=== PATIENT | female | born 1950 | race Hispanic/Latino ===

== ENCOUNTER 2019-09-02 16:43 | Emergency (ER) | payer OTHER ==
--- OUTSIDE RECORDS SUMMARY | 2019-09-02 16:45 | XMS REPORT | Encounter Summary ---
:1950 Author Care Team Providers Name Role Phone Erick Sidhu MD Primary Care Provider [phone] Reason for Visit new patient Instructions 1. Persistent insomnia mirtazapine 15 mg tablet 2. Type 2 diabetes mellitus without complication 3. Essential hypertension 4. Dementia dementia: care instructions helping A person with dementia: care instructions Discussion Note: None recorded. Plan of Care Reminders Provider Appointments Follow up 06/17/2019 Erick Villalobos 2:15PM MD [facility] None recorded. Referral None recorded. Procedures None recorded. Surgeries None recorded. Imaging None recorded. Medications Name Start Date Bydureon 2 mg/0.65 mL subcutaneous pen injector 2mg sq q week diclofenac 1 % topical gel donepezil 10 mg tablet donepezil 5 mg tablet glipizide 5 mg tablet 1 tab po lisinopril 30 mg tablet 1 tab po qd memantine 10 mg tablet mirtazapine 15 mg tablet Take 1 tablet every day by oral route at bedtime for 30 days. Medications Administered None recorded. Vitals Height Weight BMI 59 in 135 lbs 27.3 kg/m2 Lab Results None recorded. Allergies Code Code System Name Reaction Severity Status Onset NKDA Problems Name Status Onset Date Source Diabetes Mellitus Active Encounter Hyperlipidemia Active Encounter Insomnia Active Encounter Essential Hypertension Active Encounter Shoulder Pain Active Encounter Biceps Tendinitis Active Encounter Muscle Pain Active Encounter Pain in Upper Limb Active Encounter Cramp in Lower Leg Associated with Rest Active Encounter Unexplained Weight Loss Active Encounter Urinary Symptoms Active Encounter Abdominal Pain Active Encounter Procedures Date Name Performed by 07/23/2006 Colonoscopy Information not available Cholecystectomy Information not available Hysterectomy Information not available Vaccine List None recorded. Social History Tobacco Smoking Status Never Smoker Past Encounters 04/17/2019 Persistent Insomnia; Type 2 Diabetes Mellitus without Complication; Essential Hypertension; Dementia Erick Sidhu MD: [address] [place] [address] [address], [place] [address], Ph. History of Present Illness Note: here for followup:<div>
</div><div>Patient brought in by daughter Aimee MONTES. Was seen by Dr Wilkins from [facility] and was dx with Stage 2 Dementia.Patient states she feels well , states she is under alot of stress. She still drives. She showers, bathes and dresses herself. She feeds herself and also is able to cook for herself. There are alot of legal issues going on, family apparently one daughter trying to get guardianship of the patient and there is an ongoing legal reyes between sisters.</div><div>Current living arrangement, daughter SIMON lives her at patient's house.</div><div>
</div><div> Current on MM 2017 per the patient.</div><div>
</div&gt ;<div>Current on Cologua2017 per the patient.</div><div>&lt ;br></div><div>S/p JORGE , no morepap smears.</div><div&gt ;
</div><div>Patient doesnt want flu shots.</div>< div>
</div><div>Unclear if she has had pneumonia vaccination.</div><div>
</div><div>She recieves Home health for medication monitoring through [facility]. </div><div& gt;
</div><div>
</div><div>PMHx:</ div><div>
</div><div>Type 2 DM</div><div& gt;
</div><div>HTN</div><div>
</div ><div>Dementia dx by Dr Wilkins pt refuses to take aricept and namenda. </div><div>
</div><div>
</ div><div>
</div> Review of Systems General Adult ROS Reported By: Patient Constitutional: Constitutional: no fever, no night sweats, no significant weight gain, no significant weight loss Eyes: Eyes: no dry eyes, no irritation ENMT: Ears: no difficulty hearing. Nose: no frequent nosebleeds. Mouth/Throat: no sore throat Cardiovascular: Cardiovascular: no chest pain, no arm pain on exertion, no shortness of breath when walking, no shortness of breath when lying down, no palpitations Respiratory: Respiratory: no cough, no wheezing, no shortness of breath, no coughing up blood Gastrointestinal: Gastrointestinal: no abdominal pain, no vomiting, normal appetite, no diarrhea, not vomiting blood Genitourinary: Genitourinary: no incontinence, no difficulty urinating, no hematuria Musculoskeletal: Musculoskeletal: no muscle aches, no muscle weakness, no arthralgias/joint pain, no back pain Integumentary: Skin: no abnormal mole, no jaundice, no rashes Neurologic: Neurologic: no loss of consciousness, no weakness, no numbness, no seizures, no dizziness Psychiatric: Psych: no depression, restless sleep Endocrine: Endocrine: no fatigue Hematologic/Lymphatic: Hematologic/Lymphatic no swollen glands, no bruising Allergic/Immunologic: Allergy/Immunologic: no runny nose, no sinus pressure, no itching, no hives, no frequent sneezing Physical Exam General Adult Exam - Female Reported By: Patient Constitutional: General Appearance: healthy-appearing, well-nourished, well-developed. Level of Distress: NAD. Ambulation: ambulating normally Psychiatric: Insight: good judgement. Mental Status: active and alert, normal mood, normal affect. Orientation: to time, to place, to person. Memory: recent memory normal Head: Head: normocephalic Eyes: Pupils: PERRLA. EOM: EOMI. Sclerae: non-icteric ENMT: Oropharynx: moist mucous membranes Neck: Neck: supple, FROM. Thyroid: no enlargement, non-tender, no nodules Lungs: Respiratory effort: no dyspnea. Auscultation: breath sounds normal, good air movement Cardiovascular: Heart Auscultation: RRR, normal S1, normal S2. Neck vessels: no carotid bruits. Pulses including femoral / pedal: normal throughout Abdomen: Bowel Sounds: normal. Inspection and Palpation: soft, non-distended, no tenderness, no guarding Musculoskeletal:: Motor Strength and Tone: normal motor strength, normal tone. Joints, Bones, and Muscles: normal movement of all extremities. Extremities: no cyanosis, no edema, no varicosities Neurologic: Gait and Station: normal gait, normal station. Cranial Nerves: grossly intact. Reflexes: DTRs 2+ bilaterally throughout Skin: Inspection and palpation: no rash, no lesions
--- OUTSIDE RECORDS SUMMARY | 2019-09-02 16:45 | XMS REPORT | Encounter Summary ---
:1950 Author Care Team Providers Name Role Phone Erick Sidhu MD Primary Care Provider [phone] Reason for Visit Abdominal Pain; new patient Instructions 1. Abdominal pain abdominal pain: care instructions CBC w/ auto diff CMP, serum or plasma urinalysis, complete amylase + lipase, serum 2. Elevated blood-pressure reading without diagnosis of hypertension elevated blood pressure: care instructions 3. Acute urinary tract infection Macrobid 100 mg capsule Discussion Note: None recorded. Plan of Care Patient Instructions Push fluids. Reminders Provider Appointments Follow up Erick Villalobos 06/17/2019 MD [facility] 2:15PM Lab CBC W/ Auto [facility] Diff 05/21/2019 [facility] (Labs) (Xray) CMP, Serum [facility] or Plasma 05/21/2019 [facility] (Labs) (Xray) Urinalysis, [facility] Complete 05/21/2019 [facility] (Labs) (Xray) Amylase + [facility] Lipase, Serum 05/21/2019 [facility] (Labs) (Xray) Referral None recorded. Procedures None recorded. Surgeries None recorded. Imaging None recorded. Medications Name Start Date Bydureon 2 mg/0.65 mL subcutaneous pen injector 2mg sq q week diclofenac 1 % topical gel donepezil 10 mg tablet donepezil 5 mg tablet glipizide 5 mg tablet 1 tab po lisinopril 30 mg tablet 1 tab po qd Macrobid 100 mg capsule Take 1 capsule every 12 hours by oral route for 7 days. memantine 10 mg tablet mirtazapine 15 mg tablet Take 1 tablet every day by oral route at bedtime for 30 days. Medications Administered None recorded. Vitals Height Weight BMI Blood Pressure 59 in 134 lbs 1 oz 27.1 kg/m2 164/84 mm[Hg] Results Lab Results None recorded. Allergies Code Code [...] Tobacco Smoking Status Never Smoker Past Encounters 05/21/2019 Abdominal Pain; Elevated Blood-pressure Reading without Diagnosis of Hypertension; Acute Urinary Tract Infection Gricel Bermudez, SEAMING MACHINE OPERATOR: [address], [place] [address] , Ph. History of Present Illness Note: Sharp stomach pain started this morning. Denies fever, nausea, vomiting , or diarrhea. Review of Systems General Adult ROS Reported [...] no coughing up blood Gastrointestinal: Gastrointestinal: no vomiting, normal appetite, no diarrhea, not vomiting blood, abdominal pain Genitourinary: Genitourinary: no incontinence, no difficulty urinating, no hematuria Musculoskeletal: Musculoskeletal: no muscle aches, no muscle weakness, no arthralgias/joint pain, no back pain Integumentary: Skin: no abnormal mole, no jaundice, no rashes Neurologic: Neurologic: no loss of consciousness, no weakness, no numbness, no seizures, no dizziness Psychiatric: Psych: no depression Endocrine: Endocrine: no fatigue Hematologic/Lymphatic: Hematologic/Lymphatic no swollen glands, no bruising Allergic/Immunologic: Allergy/Immunologic: no runny nose, no sinus pressure, no itching, no hives, no frequent sneezing Physical Exam General Adult Exam - Female Reported By: Patient Constitutional: General Appearance: healthy-appearing, well-nourished, well-developed. Level of Distress: NAD. Ambulation: ambulating normally Eyes: Lids and Conjunctivae: non-injected, no discharge, no pallor. Pupils: PERRLA. Corneas: grossly intact. EOM: EOMI. Lens: clear. Sclerae: non-icteric. Vision: peripheral vision grossly intact, acuity grossly intact ENMT: Ears: no lesions on external ear, TMs clear, TM mobility normal, EAC ceruminous. Hearing: no hearing loss. Nose: no lesions on external nose, nares patent, no septal deviation, nasal passages clear, no sinus tenderness, no nasal discharge. Lips, Teeth, and Gums: no mouth or lip ulcers, no bleeding gums, normal dentition. Oropharynx: moist mucous membranes, no erythema, no exudates, tonsils not enlarged Neck: Neck: supple, trachea midline, no masses, FROM, no carotid bruits. Lymph Nodes: no cervical LAD, no supraclavicular LAD, no axillary LAD, no inguinal LAD. Thyroid: no enlargement, non-tender, no nodules Lungs: Respiratory effort: no dyspnea. Percussion: no dullness, flatness, or hyperresonance. Auscultation: breath sounds normal, good air movement, CTA except as noted, no wheezing, no rales/crackles, no rhonchi Cardiovascular: Apical Impulse: not displaced. Heart Auscultation: RRR, normal S1, normal S2, no murmurs, no rubs, no gallops. Neck vessels: no carotid bruits. Pulses including femoral / pedal: normal throughout Abdomen: Inspection and Palpation: soft, non-distended, no rebound tenderness, epigastric tenderness, LUQ tenderness, RUQ tenderness, LLQ tenderness, RLQ tenderness
--- OUTSIDE RECORDS SUMMARY | 2019-09-02 16:45 | XMS REPORT | Continuity of Care Document ---
:1950 Author Organization [facility] Address [address] [place] [address] Allergies, Adverse Reactions, Alerts Allergen Type Severity Reaction Last Updated Verified Status No Known Allergies Allergy Unknown December 19, 2013 No Active Medications Medication Status Dose Units Route Sig Qty Days Start End Instructions Date Date Lisinopril Active 10 ORAL Daily Metformin Hcl Active 500 ORAL Twice A Day Problems Active Problems Medical Problem Onset Date Status Cervical radiculopathy Active Cervical radiculopathy Active Cervical radiculopathy Active [id number] Active [id number] Active [id number] Active Insect bite Active Laceration of thumb, left Active Shoulder pain Active UTI (urinary tract infection) with pyuria Active Inactive/Resolved Problems Medical Problem Onset Date Status Urinary tract infection Resolved Procedures Procedure Date Performed Status Computed tomography of abdomen and pelvis with contrast August 29, 2019 completed Relevant Diagnostic Tests and/or Laboratory Data Laboratory Results Test Date/Time Result Interpretation Reference Result Performing Range Comment Site White Blood Count August 6.1 4.0-11.5 [facility], [facility] 2019 9:54[facility] [address] Red Blood Count August 3.91 3.80-5.20 [facility], 2019 9:54[facility] 90990 Hemoglobin August 12.6 10.5-15.7 [facility], 2019 9:54[facility] [address]695 Hematocrit August 36.6 34.0-50.0 [facility], 2019 9:54[facility] [address] Mean Corpuscular August 93.6 86-100 [facility], Volume 2019 9:54[facility] [address] Mean Corpuscular August 32.2 26.2-33.4 [facility], [facility] 2019 9:54[facility] 14605 Mean Corpuscular August 34.4 30-34 [facility], [address] Hemoglobin Concent 2019 9:54[facility] [address] Red Cell February 11.8 12.0-15.5 [facility], [address] Distribution Width 2019 9:54[place] [address] Platelet Count August 188 165-450 [facility], [address] 2019 9:54[facility] [address] Mean Platelet August 9.3 9.4-12.6 [facility], [address] Volume 2019 9:54[facility] [place] [address] Neutrophils (%) August 53.6 44.4-80.1 [facility], [address] (Auto) 2019 9:54[facility] [address] Immature February 0.2 0.0-0.4 [facility], [address] Granulocyte % 2019 (Auto) 9:54[facility] [address] Lymphocytes (%) August 39.0 10.0-50.0 [facility], [address] (Auto) 2019 9:54am [place] [address] Monocytes (%) August 6.2 3.6-12.0 [facility], [address] (Auto) 2019 9:54am [place] [address] Eosinophils (%) August 0.7 0.0-5.4 [facility], [address] (Auto) 2019 9:54am [place] [address] Basophils (%) August 0.3 0.1-1.2 [facility], [address] (Auto) 2019 9:54[facility] [address] Neutrophils # February 3.27 1.56-6.13 [facility], [address] (Auto) 2019 9:54[facility] [address] Absolute Immature February 0.0 0.0-0.03 [facility], [address] Granulocyte (auto 2019 9:54[facility] [place] [address] Lymphocytes # February 2.4 1.18-3.74 [facility], [address] (Auto) 2019 9:54am [place] [address] Monocytes # (Auto) August 0.38 0.24-0.86 [facility], [address] 2019 9:54am [place] [address] Eosinophils # February 0.04 0.04-0.36 [facility], [address] (Auto) 2019 9:54am [place] [address] Basophils # (Auto) August 0.02 0.01-0.08 [facility], 2019 9:54am [place] [address] Nucleated Red August 0 0-0.2 [facility], [facility] Blood Cells % 2019 9:54am [place] [address] Nucleated Red August 0 0 [facility], Blood Cells # 2019 9:54am [place] [address] Urine Color August COLORLESS [facility], 104 2019 10:20am [place] [address] Urine Appearance August CLEAR CLEAR [facility], 104 2019 10:20am [place] [address] Urine Glucose (UA) August NEGATIVE NEGATIVE [facility], 104 2019 10:20am [place] [address] Urine Bilirubin August NEGATIVE NEGATIVE [facility], 104 2019 10:20am [facility] [address] Urine Ketones August NEGATIVE NEGATIVE [facility], 104 2019 10:20am [facility] [address] Urine Specific August 1.010 1.003-1.03 [facility], [address] [place] 2019 0 10:20am [facility] [address] Urine Blood August NEGATIVE NEGATIVE [facility], 104 2019 10:20am [facility] [address] Urine pH August 6.000 5-9 [facility], 2019 10:20am [facility] [address] Urine Protein August NEGATIVE NEGATIVE [facility], 2019 10:20am [facility] [address] Urine Urobilinogen August NORMAL 0.2-1.0 [facility], 104 2019 10:20am [place] [address] Urine Nitrate August NEGATIVE NEGATIVE [facility], 104 2019 10:20am [facility] [address] Urine Leukocyte August 1+ NEGATIVE [facility], 104 [place] 2019 10:20am [facility] [address] Urine RBC August <1 0-5 [facility], 2019 10:20am [place] [address] Urine WBC August 1-5 0-5 [facility], 2019 10:20am [place] [address] Urine Epithelial August 1-5 0-5 [facility], 104 2019 10:20am [facility] [address] Urine Bacteria August None None [facility], [address] [place] [address] 2019 Detected Detect 10:20am [facility] [address] Urine Casts August None None [facility], [address] [place] [address] 2019 Detected Detect 10:20am [facility] [address] Urine Culture August YES [facility], [address] [place] [address] Reflexed 2019 10:20am [facility] [address] Random Glucose August 208 82-115 [facility], [address] [place] [address] 2019 10:15am [facility] [address] Blood Urea August 13 8-23 [facility], [address] [place] [address] Nitrogen 2019 10:15am [facility] [address] Serum Osmolality August 280 280-300 [facility], [address] [place] [address] 2019 10:15am [facility] [address] Creatinine August 0.8 0.50-0.90 [facility], [address] [place] [address] 2019 10:15am [facility] [address] Glomerular August > 60.00 GFR RESULTS [address] Filtration Rate 2019 ARE Calc 10:15am REPORTED IN [facility] [address] mL/min/1.73 m2.Normal GFR: >60mL/minMo derately decreased GFR: 30-59 mL/minSever stella decreased GFR: 15-29 mL/minKidne y Failure (or Dialysis): <15 mL/minThe calculated eGFR is not valid for patients younger than 18 years or older than 75 years. BUN/Creatinine August 16.3 12-20 [facility], [address] [facility] Ratio 2019 10:15am [facility] [address] Sodium Level August 137 135-145 [facility], [address] [place] [address] 2019 10:15am [facility] [address] Potassium Level August 3.6 3.5-5.2 [facility], [address] [place] [address] 2019 10:15am [facility] [address] Chloride Level August 100 98-108 [facility], [address] [place] [address] 2019 10:15am [facility] [address] Carbon Dioxide August 25 21-32 [facility], [address] [place] [address] Level 2019 10:15am [facility] [address] Anion Gap August 15.6 12-20 [facility], [address] [place] [address] 2019 10:15am [facility] [address] Calcium Level August 8.8 8.8-10.2 [facility], [address] [place] [address] 2019 10:15am [facility] [address] Total Protein February 6.9 6.6-8.7 [facility], 104 2019 10:15am [facility] [address] Albumin February 3.9 3.5-5.2 [facility], 104 2019 10:15am [facility] [address] Globulin February 3.0 [facility], 104 2019 10:15am [facility] [address] Albumin/Globulin February 1.3 >1.0 [facility], [address] Ratio 2019 10:15am [facility] [address] Total Bilirubin February 0.4 0.0-1.2 [facility], 104 2019 10:15am [facility] [address] Aspartate Amino August 27 15-32 [facility], [address] Transf (AST/SGOT) 2019 10:15am [facility] [address] Alanine August 30 0-33 [facility], [address] Aminotransferase 2019 (ALT/SGPT) 10:15[facility] [address] Lipase August 36 13-60 [facility], [address] 2019 10:15am [facility] [address] Total Alkaline August 155 35-105 [facility], [address] Phosphatase 2019 10:15am [facility] [address] Health Concerns No known health concerns documented Advance Directives Advance Directive Response Recorded Date/Time Advance Directives No September 25, 2015 4:56am Directive to Physicians/Living Will No September 25, 2015 4:56am Health Care Proxy No September 25, 2015 4:56am Name of Surrogate/Decision Maker KELSIE GILLETTE August 29, 2019 11:00am Organ Donor No September 25, 2015 4:56am Medical Power of Hoisting Engineer Pile Driving No September 25, 2015 4:56am Chief Complaint and Reason for Visit Chief Complaint Abdominal/GI/Nausea/Vomiting Reason for Visit [id number] Encounters Encounter Location(s) Arrival/Admit Date Discharge/Depart Date Provider(s) Departed [place] August 29, 2019 August 29, 2019 JOHN HADDAD Emergency Room [facility] 9:42am 2:11pm [facility] Assessments No Assessments Information Available Functional Status No Functional Status information available Goals No Goals Information Available Immunizations No Immunization Information Available Mental Status No Mental Status Information Available Medical Equipment No Medical Equipment Information available Insurance Providers Guarantor Peg Turpin Address [address] [facility] [id number] Contact Info. Home Phone: Payer Policy Id Coverage Id Subscriber's Subscriber Id Effective Expiration Name Date Date [place] [id number] Peg Turpin [id number] August [facility] Plan of Treatment 1. Thank you for coming to the emergency department today. It is a privilege to serve you and your family. 2. Please call your primary care doctor today to make a follow-up appointment. 3. Emergency room care is not a substitute for primary care. It is impossible to diagnose and treat all medical conditions in the emergency department or in a single visit. It is very important that you follow up as directed. 4. Please return to the Emergency room for any worsening or severe or worrisome symptoms. 5. Please fill your prescriptions immediately and take all prescriptions as directed. Future Tests Future scheduled test information is unavailable Pending Tests Test Name Date ordered Urine Culture August 29, 2019 10:20am Future Visits Future appointment information is unavailable Referrals to Other Providers Reason for Referral Start Provider Provider Contact Provider Address Referral Date Information TYLER BROWN Work Phone: [address] [facility] [address] Future Procedures Future procedure information is unavailable Future Medications Future medication information is unavailable Patient Instructions Urinary Tract Infection, Adult Social History Smoking Status Status Date of Observation Never smoked tobacco (finding) August 29, 2019 9:45am Observation Status Observation Response Date of Response Hx Physical Abuse No August 29, 2019 9:45am Assigned Sex Female Vital Signs Vital Reading Result Collection Date/Time
--- OUTSIDE RECORDS SUMMARY | 2019-09-02 16:45 | XMS REPORT | Encounter Summary ---
:1950 Author Care Team Providers Name Role Phone Erick Sidhu MD Primary Care Provider [phone] Reason for Visit Follow Up Visit Instructions 1. Type 2 diabetes mellitus without complication hemoglobin A1c, QN, blood CMP, serum or plasma lipid panel, serum microalbumin, urine TSH, serum or plasma 2. Persistent insomnia Remeron 30 mg tablet 3. Urinary tract infectious disease 4. Essential hypertension Discussion Note: None recorded.Patient educational handouts: No information available. Plan of Care Reminders Provider Appointments Return to on or around Erick Villalobos Office 09/17/2019 MD [facility] Hemoglobin 06/17/2019 [facility] a1C, QN, Blood [facility] (Labs) (Xray) CMP, Serum 06/17/2019 [facility] or Plasma [facility] (Labs) (Xray) Lipid Panel, 06/17/2019 [facility] Serum [facility] (Labs) (Xray) 06/17/2019 [facility] Microalbumin, Urine [facility] (Labs) (Xray) TSH, Serum 06/17/2019 [facility] or [facility] (Labs) (Xray) Referral None recorded. Procedures None recorded. Surgeries None recorded. Imaging None recorded. Medications Name Start Date acetaminophen 300 mg-codeine 30 mg tablet Bydureon 2 mg/0.65 mL subcutaneous pen injector 2mg sq q week diclofenac 1 % topical gel donepezil 10 mg tablet donepezil 5 mg tablet glipizide 5 mg tablet 1 tab po lisinopril 30 mg tablet 1 tab po qd memantine 10 mg tablet mirtazapine 15 mg tablet Take 1 tablet every day by oral route at bedtime for 30 days. vserybin-xngdsawpx-cnohksgoq 3.5 mg-10,000 unit/mL-1 % ear drops,susp OneTouch Ultra Blue Test Strip Remeron 30 mg tablet Take 1 tablet every day by oral route for 30 days. Medications Administered None recorded. Vitals Height Weight BMI Blood Pressure 59 in 133 lbs 7 oz 27 kg/m2 129/76 mm[Hg] Results Lab Results Date Name Specimen Result Interpretation Description Value Range Status Address 05/21/2019 CBC W/ Normal White 6.7 K/uL 4.0-11.5 Final [facility] Auto Diff Blood Count K/uL [facility] (Lab): [address] [place] [address] Normal Red Blood 3.91 M/uL 3.80-5.20 Final [facility] Count M/uL [facility] (Lab): [address] [place] [address] Normal Hemoglobin 12.6 g/dL 10.5-15.7 Final [facility] g/dL [facility] (Lab): [address] [place] [address] Normal Hematocrit 38.0 % 34.0-50.0 Final [facility] % [facility] (Lab): [address] [place] [address] Normal Mean 97.2 fL 86-100 fL Final [facility] Corpuscular [facility] Volume [facility] (Lab): [address] [place] [address] Normal Mean 32.2 pg 26.2-33.4 Final [facility] Corpuscular pg [facility] Hemoglobin [facility] (Lab): [address] [place] [address] Normal Mean 33.2 g/dL 30-34 Final [facility] Corpuscular g/dL [facility] (Lab): [address] [place] [address] Normal Red Cell 12.2 % 12.0-15.5 Final [facility] Distribut[facility] (Lab): [address] [place] [address] Normal Platelet 256 K/uL 165-450 Final [facility] Count K/uL [facility] (Lab): [address] [place] [address] Normal Mean 9.9 fL 9.4-12.6 Final [facility] Platelet fL [facility] (Lab): [address] [place] [address] Normal Neutrophil 59.1 % 44.4-80.1 Corrected [facility] s % % [facility] (Lab): [address] [place] [address] Normal Ig% 0.4 % 0.0-0.4 % Corrected [facility] (Lab): [address] [place] [address] Normal Lymphocyte 33.7 % 10.0-50.0 Final [facility] % % [facility] (Lab): [address] [place] [address] Normal Coal % 5.8 % 3.6-12.0 Final [facility] % [facility] (Lab): [address] [place] [address] Normal Eos % 0.9 % 0.0-5.4 % Final [facility] (Lab): [address] [place] [address] Normal Basophil % 0.1 % 0.1-1.2 % Final [facility] (Lab): [address] [place] [address] Normal Absolute 3.96 K/uL 1.56-6.13 Final [facility] Neutrophil K/uL [facility] Count [facility] (Lab): [address] [place] [address] Normal Ig# 0.0 K/uL 0.0-0.03 Corrected [facility] K/uL [facility] (Lab): [address] [place] [address] Normal Lymph # 2.3 K/uL 1.18-3.74 Corrected [facility] K/uL [facility] (Lab): [address] [place] [address] Normal Coal # 0.39 K/uL 0.24-0.86 Final [facility] K/uL [facility] (Lab): [address] [place] [address] Normal Eos # 0.06 K/uL 0.04-0.36 Final [facility] K/uL [facility] (Lab): [address] [place] [address] Normal Basophil # 0.01 K/uL 0.01-0.08 Corrected [facility] K/uL [facility] (Lab): [address] [place] [address] Normal Nrbc% 0 /100 0-0.2 Final [facility] WBC /100 WBC [facility] (Lab): [address] [place] [address] Normal Nrbc# 0 K/uL 0 K/uL Final [facility] (Lab): [address] [place] [address] 05/21/2019 Differenti Normal Neutrophil Incomplete [facility] al Panel, s [facility] Blood [facility] (Lab): [address] [place] [address] Normal Band Incomplete [facility] (Lab): [address] [place] [address] Normal Lymphocyte Incomplete [facility] (Lab): [address] [place] [address] Normal Monocyte Incomplete [facility] (Lab): [address] [place] [address] Normal Eosinophil Incomplete [facility] (Lab): [address] [place] [address] Normal Metamyeloc Incomplete [facility] yte [facility] (Lab): [address] [place] [address] Normal Myelocyte Incomplete [facility] (Lab): [address] [place] [address] Normal Nucleated Incomplete [facility] Red Blood [facility] Cell [facility] (Lab): [address] [place] [address] Normal Platelet Incomplete [facility] Estimate [facility] (Lab): [address] [place] [address] Normal Platelet Incomplete [facility] Morphology [facility] (Lab): [address] [place] [address] Normal Polychroma Incomplete [facility] chepe [facility] (Lab): [address] [place] [address] 05/21/2019 Urinalysis Normal Color, yellow Final [facility] Complete, Urine [facility] Reflex [facility] (Lab): [address] [place] [address] ABNORMAL Appearance SL cloudy clear Final [facility] , Urine [facility] (Lab): [address] [place] [address] Normal Urine negative negative Final [facility] Glucose [facility] (Lab): [address] [place] [address] Normal Bilirubin, negative negative Final [facility] Urine [facility] (Lab): [address] [place] [address] Normal Ketone, negative negative Final [facility] Urine [facility] (Lab): [address] [place] [address] Normal Specific 1.020 1.003-1.0 Final [facility] Hurley,uri 30 [facility] (Lab): [address] [place] [address] Normal Blood negative negative Final [facility] Urine [facility] (Lab): [address] [place] [address] Normal pH,urine 5.500 5-9 Final [facility] (Lab): [address] [place] [address] High Protein =1+ (30 negative Final [facility] Urine (UA) [facility] (Lab): [address] [place] [address] Normal Urobilinog normal 0.2-1.0 Final [facility] en, Urine mg/dL mg/dL [facility] (Lab): [address] [place] [address] Normal Nitrate, negative negative Final [facility] Urine [facility] (Lab): [address] [place] [address] Urine =4 negative Final [facility] Leukocyte [facility] Esterase [facility] (Lab): [address] [place] [address] Normal RBC, Urine <1 /[hpf] 0-5 Final [facility] /[hpf] [facility] (Lab): [address] [place] [address] High WBC, Urine =30-49 0-5 Final [facility] /[hpf] /[hpf] [facility] (Lab): [address] [place] [address] Normal Epithelial =6-10 0-5 Final [facility] Cell /[hpf] /[hpf] [facility] (Lab): [address] [place] [address] High Bacteria, tntc (4 none Final [facility] Urine /[hpf] detect Regional /[hpf] [facility] (Lab): [address] [place] [address] Normal Casts,urin hyaline none Final [facility] e 0-5 /lpf detect [facility] (Lab): [address] [place] [address] Normal Urine yes Final [facility] Culture [facility] (Lab): [address] [place] [address] Normal Mucus, =1 /lpf none Final [facility] Urine detect Regional /lpf [facility] [place] (Lab): [address] [place] [address] 05/21/2019 CMP, Serum High Glucose 179 mg/dL 82-115 Final [facility] or Plasma mg/dL [facility] (Lab): [address] [place] [address] Normal Blood Urea 12 mg/dL 8-23 Final [facility] Nitrogen mg/dL [facility] (Lab): [address] [place] [address] Normal Osmolality 293 280-300 Final [facility] Calculated, mOsm/kg mOsm/kg [facility] (Lab): [address] [place] [address] Normal Creatinine 0.8 mg/dL 0.50-0.90 Final [facility] mg/dL [facility] (Lab): [address] [place] [address] Normal Glomerular >60.00 Final [facility] Filtration [facility] [place] (Lab): [address] [place] [address] Normal BUN/creati 15.0 12-20 Final [facility] nine Ratio [facility] (Lab): [address] [place] [address] Normal Sodium 145 135-145 Final [facility] Level mmol/L mmol/L [facility] (Lab): [address] [place] [address] Normal Potassium 4.0 3.5-5.2 Final [facility] Level mmol/L mmol/L [facility] (Lab): [address] [place] [address] Normal Chloride 107 98-108 Final [facility] Level mmol/L mmol/L [facility] (Lab): [address] [place] [address] Normal Co2 28 mmol/L 21-32 Final [facility] mmol/L [facility] (Lab): [address] [place] [address] Normal Anion Gap 14.0 12-20 Final [facility] mEq/L mEq/L [facility] (Lab): [address] [place] [address] Normal Calcium 9.7 mg/dL 8.8-10.2 Final [facility] Level mg/dL [facility] (Lab): [address] [place] [address] Normal Total 7.4 g/dL 6.6-8.7 Final [facility] Protein g/dL [facility] (Lab): [address] [place] [address] Normal Albumin 4.2 g/dL 3.5-5.2 Final [facility] g/dL [facility] (Lab): [address] [place] [address] Normal Globulin 3.2 gm/dL Final [facility] (Lab): [address] [place] [address] Normal A/g Ratio 1.3 >1.0 Final [facility] (Lab): [address] [place] [address] Normal Bilirubin, <0.3 0.0-1.2 Final [facility] total mg/dL mg/dL [facility] (Lab): [address] [place] [address] Normal AST/SGOT 27 U/L 15-32 U/L Final [facility] (Lab): [address] [place] [address] Normal ALT/SGPT 25 U/L 0-33 U/L Final [facility] (Lab): [address] [place] [address] High Alkaline 147 U/L 35-105 Final [facility] Phosphatase U/L [facility] Total [facility] (Lab): [address] [place] [address] 05/21/2019 Amylase, Normal Amylase 100 U/L 28-100 Final [facility] Serum or Level U/L [facility] Plasma [facility] (Lab): [address] [place] [address] 05/21/2019 Culture, Bacteria Final [facility] Urine Ur Cult [facility] (Lab): [address] [place] [address] 05/21/2019 Antibiotic Susceptible Gentamicin <4 ug/mL Not [facility] Sensitivit Islt J Carlos Reported [facility] y Testing, [facility] (Lab): [address] [place] [address] Resistant Ampicillin >16 ug/mL Not [facility] Islt J Carlos Reported [facility] (Lab): [address] [place] [address] Susceptible Cefazolin <8 ug/mL Not [facility] Islt J [facility]orted [facility] ([facility]): [address] [place] [address] Susceptible Tmp Smx =2/38 Not [facility] Islt J Carlos ug/mL Reported [facility] (Lab): [address] [place] [address] Susceptible Tetracycli <4 ug/mL Not [facility] ne Islt J [facility] Reported [facility] (Lab): [address] [place] [address] Susceptible Amoxicilli =8/4 Not [facility] n+clav Islt ug/mL Reported [facility] (Lab): [address] [place] [address] Susceptible Tobramycin <4 ug/mL Not [facility] Islt J [facility] Reported [facility] (Lab): [address] [place] [address] Intermediate Nitrofuran 64 ug/mL Not [facility] toin Islt Reported [facility] (Lab): [address] [place] [address] Susceptible Cefotaxime <2 ug/mL Not [facility] Islt J [facility] Reported [facility] (Lab): [address] [place] [address] Susceptible Cefepime <8 ug/mL Not [facility] Islt J Carlos Reported [facility] (Lab): [address] [place] [address] Susceptible Levofloxac <2 ug/mL Not [facility] in Islt J Carlos Reported [facility] (Lab): [address] [place] [address] Susceptible Pip+tazo <16 ug/mL Not [facility] Islt J Carlos Reported [facility] (Lab): [address] [place] [address] Susceptible Ceftazidim <1 ug/mL Not [facility] e Islt J [facility] Reported [facility] ([facility]): [address] [place] [address] Susceptible Ceftriaxon <8 ug/mL Not [facility] e Islt J [facility] Reported [facility] (Lab): [address] [place] [address] Susceptible Ciprofloxa <1 ug/mL Not [facility] loyda Islt Reported [facility] (Lab): [address] [place] [address] Susceptible Imipenem <4 ug/mL Not [facility] Islt J Carlos Reported [facility] (Lab): [address] [place] [address] Susceptible Ampicillin =8/4 Not [facility] +sulbac ug/mL Reported [facility] Is [facility] (Lab): [address] [place] [address] Susceptible Ertapenem <2 ug/mL Not [facility] Islt J Carlos Reported [facility] (Lab): [address] [facility] Susceptible Aztreonam <8 ug/mL Not [facility] Islt J Carlos Reported [facility] (Lab): [address] [facility] Susceptible Cefuroxime <4 ug/mL Not [facility] Islt J Carlos Reported [facility] (Lab): [address] [facility] Susceptible Meropenem <4 ug/mL Not [facility] Islt J Carlos Reported [facility] (Lab): [address] [place] [address] Allergies Code Code System Name Reaction Severity [...] Tobacco Smoking Status Never Smoker Past Encounters 06/17/2019 Type 2 Diabetes Mellitus without Complication; Persistent Insomnia; Urinary Tract Infectious Disease; Essential Hypertension Erick Sidhu MD: [address], [place] [address], Ph. 05/21/2019 Abdominal Pain; Elevated Blood-pressure Reading without Diagnosis of Hypertension; Acute Urinary Tract Infection Gricel Bermudez HEARING THERAPY DIRECTOR: [address], [place] [address] , Ph. History of Present Illness Note: <div>Type 2 diabetes mellitus: Patient denies polyuria or polydipsia or polyphagia. No abnormal weight loss. Taking medications every day. States he does get an eye exam once a year. Denies any problems with her feet.</div><div>
</div><div>Hypertension: Taking medication as prescribed. Denies any edema paroxysmal nocturnal dyspnea or orthopnea.</div><div>
</div><div>Insomnia: Patient taken Remeron 15 mg at at bedtime only felt some minimal improvement.&lt ;/div><div>
</div><div>UTI: Patientdiagnosed with a UTI by her nurse practitioner she denies any symptoms at this time due for a recheck on her urinary analysis.</div><div>
</div>&lt ;div>Dementia: Patient not taking any medications prescribed by her neurologist. States that she has been feeling better. No recent falls.</div ><div>
</div><div>
</div><div&gt ;
</div> Review of Systems General Adult ROS [...]
[2019-09-02 17:43] LABS: Absolute Lymphocytes (CBC) 1.1 K/uL (0.7-4.9); Basophils % 0.5 % (0-1.3); Hematocrit 37.3 % (36.0-45.0); Lymphocytes % 25.7 % (15.3-44.8); MPV 7.7 fL (7.6-11.3); RBC Red Blood Cell Count 3.93 M/uL (3.86-4.86)
[2019-09-02] MEDS ORDERED: NA CHLORIDE 0.9% 1,000 ML ONE (18:00)
--- NOTE | 2019-09-02 18:07 | RAD REPORT ---
EXAM DESCRIPTION: CT - Stone Protocol - 09/02/2019 5:47 pm CLINICAL HISTORY: Abdominal pain COMPARISON: None TECHNIQUE: Computed axial tomography of the abdomen and pelvis was obtained. IV was not requested. O ral contrast was given. Coronal reconstructions performed. All CT scans are performed using dose optimization technique as appropriate and may include automated exposure control or mA/KV adjustment according to patient size. FINDINGS: The evaluation of solid organs and vessels is limited secondary to the lack of contrast a dministration. A prominent left lobe and caudate of the liver. Varices left upper quadrant Spleen, pancreas, adrenals and left kidney appear grossly normal. Two tiny right renal calculi. No hydronephrosis. A ureteral calculus is not noted The appendix is normal. There is no evidence of diverticulitis. Small umbilical hernia contains fat IMPRESSION: Tiny nonobstructing right renal calculi Prominent left lobe and caudate liver may indicate cirrhosis. Varices left upper quadrant
[2019-09-02 18:11] LABS: Albumin 3.6 g/dL (3.4-5.0); Bilirubin Direct 0.1 mg/dL (0-0.2); Bilirubin Total 0.4 mg/dL (0.2-1.0); Protein, Total 7.2 g/dL (6.4-8.2)
[2019-09-02 18:33] LABS: Urine Blood TRACE (NEG); Urine Glucose 1+ (NEG); Urine Protein 1+ (NEG); Urine Specific Gravity 1.015 (1.005-1.030)
[2019-09-02] MEDS ORDERED: ONDANSETRON 4 MG/2 ML VIAL ONE (18:34)
[2019-09-02] MEDS ORDERED: MORPHINE 4 MG/ML SYR ONE (18:34)
--- NOTE | 2019-09-02 18:34 | RAD REPORT ---
EXAM DESCRIPTION: [facility] Single View09/02/2019 6:19 pm CLINICAL HISTORY: Abdominal pain COMPARISON: none FINDINGS: The lungs appear clear of acute infiltrate. The heart is normal size IMPRESSION: No acute abnormalities displayed
--- NOTE | 2019-09-02 19:01 | EDPHYS ---
Physician Documentation [facility] Name: Peg Bragg Age: 69 yrs Sex: Female : 1950 Arrival Date: 09/02/2019 Time: 16:44 Bed 24 Private MD: ED Physician Nicola Marroquin HPI: 09/02 17:48 This 69 yrs old Female presents to ER via Wheelchair with complaints of Back giles Pain, Abdominal Pain, Urinary Problem. 17:48 The patient presents with pain that is acute, with no known mechanism of injury. The giles symptoms are located in the left low back and left mid back. Historical: - Allergies: 17:00 No Known Allergies; jl7 - Home Meds: 17:00 mirtazapine 30 mg Oral tab 1 tab once daily [Active]; donepezil 10 mg oral tab 1 tab jl7 once daily [Active]; glipizide 5 mg Oral tab 1 tab 2 times per day [Active]; memantine 10 mg oral tab 1 tab 2 times per day [Active]; lisinopril 10 mg Oral tab 1 tab once daily [Active]; Trulicity subcutaneous subcutaneous [Active]; - PMHx: 17:00 Diabetes - IDDM; Hypertension; Dementia; jl7 - PSHx: 17:00 Hysterectomy; Cholecystectomy; Appendectomy; jl7 - Immunization history:: Adult Immunizations not up to date. - Coronavirus screen:: The patient has NOT traveled to [place] in the past 14 days. Proceed with normal triage process as indicated. - Social history:: Smoking status: Patient denies any tobacco usage or history of. - Family history:: not pertinent. - Ebola Screening: : No symptoms or risks identified at this time. ROS: 17:49 Constitutional: Negative for fever, chills, and weight loss, Eyes: Negative for injury, giles pain, redness, and discharge, ENT: Negative for injury, pain, and discharge, Neck: Negative for injury, pain, and swelling, Cardiovascular: Negative for chest pain, palpitations, and edema, Respiratory: Negative for shortness of breath, cough, wheezing, and pleuritic chest pain, : Negative for injury, bleeding, discharge, and swelling, MS/Extremity: Negative for injury and deformity, Skin: Negative for injury, rash, and discoloration, Neuro: Negative for headache, weakness, numbness, tingling, and seizure, Psych: Negative for depression, anxiety, suicide ideation, homicidal ideation, and hallucinations, Allergy/Immunology: Negative for hives, rash, and allergies, Endocrine: Negative for neck swelling, polydipsia, polyuria, polyphagia, and marked weight changes, Hematologic/Lymphatic: Negative for swollen nodes, abnormal bleeding, and unusual bruising. 17:49 Abdomen/GI: Positive for abdominal pain. 17:49 Back: Positive for pain at rest, flank pain. Exam: 17:49 Constitutional: This is a well developed, well nourished patient who is awake, alert, giles and in no acute distress. Head/Face: Normocephalic, atraumatic. Eyes: Pupils equal round and reactive to light, extra-ocular motions intact. Lids and lashes normal. Conjunctiva and sclera are non-icteric and not injected. Cornea within normal limits. Periorbital areas with no swelling, redness, or edema. ENT: Nares patent. No nasal discharge, no septal abnormalities noted. Tympanic membranes are normal and external auditory canals are clear. Oropharynx with no redness, swelling, or masses, exudates, or evidence of obstruction, uvula midline. Mucous membranes moist. Neck: Trachea midline, no thyromegaly or masses palpated, and no cervical lymphadenopathy. Supple, full range of motion without nuchal rigidity, or vertebral point tenderness. No Meningismus. Chest/axilla: Normal chest wall appearance and motion. Nontender with no deformity. No lesions are appreciated. Cardiovascular: Regular rate and rhythm with a normal S1 and S2. No gallops, murmurs, or rubs. Normal PMI, no JVD. No pulse deficits. Respiratory: Lungs have equal breath sounds bilaterally, clear to auscultation and percussion. No rales, rhonchi or wheezes noted. No increased work of breathing, no retractions or nasal flaring. Abdomen/GI: Soft, non-tender, with normal bowel sounds. No distension or tympany. No guarding or rebound. No evidence of tenderness throughout. Back: No spinal tenderness. No costovertebral tenderness. Full range of motion. Skin: Warm, dry with normal turgor. Normal color with no rashes, no lesions, and no evidence of cellulitis. MS/ Extremity: Pulses equal, no cyanosis. Neurovascular intact. Full, normal range of motion. Neuro: Awake and alert, GCS 15, oriented to person, place, time, and situation. Cranial nerves II-XII grossly intact. Motor strength 5/5 in all extremities. Sensory grossly intact. Cerebellar exam normal. Normal gait. Psych: Awake, alert, with orientation to person, place and time. Behavior, mood, and affect are within normal limits. 17:49 Abdomen/GI: Inspection: abdomen appears normal, Bowel sounds: normal, Palpation: [facility] moderate abdominal tenderness, in the posterior aspect of left lateral abdomen, anterior aspect of left lateral abdomen, left upper quadrant and left lower quadrant. 18:54 Skin: zoster. [facility] Vital Signs: 17:00 BP 160 / 78; Pulse 85; Resp 17 S; Temp 98.5(O); Pulse Ox 95% on R/A; Weight 60.33 kg jl7 (R); Height 4 ft. 9 in. (144.78 cm) (R); Pain 10/10; 19:32 BP 128 / 78; Pulse 80; Resp 17; Temp 98; Pulse Ox 100% on R/A; mg2 17:00 Body Mass Index 28.78 (60.33 kg, 144.78 cm) jl7 MDM: 17:15 Patient medically screened. [facility] 17:52 Data reviewed: vital signs, nurses notes, lab test result(s), radiologic studies, CT [facility] scan, plain films. 09/02 17:30 Order name: Basic Metabolic Panel [facility] 09/02 17:30 Order name: CBC with Diff [facility] 09/02 17:30 Order name: Creatinine for Radiology [facility] 09/02 17:30 Order name: Hepatic Function [facility] 09/02 17:30 Order name: Lipase [facility] 09/02 17:45 Order name: CBC with Automated Diff; Complete Time: 18:42 [facility] 09/02 17:30 Order name: CT Stone Protocol [facility] 09/02 17:48 Order name: Urine Culture [facility] 09/02 18:08 Order name: Creatinine (Radiology Only); Complete Time: 18:42 [facility] 09/02 18:13 Order name: Basic Metabolic Panel; Complete Time: 18:42 [facility] 09/02 18:13 Order name: Liver (Hepatic) Function; Complete Time: 18:42 [facility] 09/02 18:13 Order name: Lipase; Complete Time: 18:42 [facility] 09/02 18:16 Order name: Urine Dipstick--Ancillary (enter results) 09/02 18:35 Order name: Urine Dipstick-Ancillary; Complete Time: 18:42 [facility] 09/02 17:30 Order name: IV Saline Lock; Complete Time: 17:38 [facility] 09/02 17:30 Order name: Labs collected and sent; Complete Time: 17:38 [facility] 09/02 17:30 Order name: Urine Dipstick-Ancillary (obtain specimen); Complete Time: 17:38 [facility] 09/02 17:48 Order name: Chest Single View XRAY [facility] 09/02 18:16 Order name: CT; Complete Time: 18:42 [facility] 09/02 18:42 Order name: RAD; Complete Time: 18:54 EDMS Administered Medications: 17:53 Drug: NS 0.9% 1000 ml Route: IV; Rate: 1 bolus; Site: right forearm; mg2 19:32 Follow up: Response: No adverse reaction; IV Status: Completed infusion; IV Intake: mg2 1000ml 18:45 Drug: morphine 4 mg Route: IVP; Site: right forearm; mg2 19:31 Follow up: Response: No adverse reaction; Marked relief of symptoms mg2 18:45 Drug: Zofran 4 mg Route: IVP; Site: right forearm; mg2 19:31 Follow up: Response: No adverse reaction; Marked relief of symptoms mg2 19:17 Drug: Valtrex 1000 mg Route: PO; mg2 19:31 Follow up: Response: No adverse reaction; Marked relief of symptoms mg2 Disposition: 09/02/19 18:59 Discharged to Home. Impression: Abdominal tenderness, Zoster without complications, Type 1 diabetes mellitus. - Condition is Stable. - Discharge Instructions: Abdominal Pain, Adult, Shingles, Shingles, [id number], Abdominal Pain, Adult, [id number]. - Prescriptions for Tylenol- Codeine #3 300-30 mg Oral Tablet - take 2 tablet by ORAL route every 6 hours As needed; 30 tablet. Valtrex 1 g Oral Tablet - take 1 tablet by ORAL route every 8 hours for 7 days; 21 tablet. Zofran 4 mg Oral Tablet - take 1 tablet by ORAL route every 12 hours As needed; 20 tablet. - Medication Reconciliation Form, Thank You Letter, Antibiotic Education, Prescription Opioid Use form. - Follow up: Private Physician; When: 2 - 3 days; Reason: Recheck today's complaints, Continuance of care, Re-evaluation by your physician. Follow up: Ray Arce MD; When: 2 - 3 days; Reason: Recheck today's complaints, Continuance of care, Re-evaluation by your physician. - Problem is new. - Symptoms have improved. Signatures: Dispatcher [employer] EDNicola Buckley MD MD cha Leal, Jahala RN RN jl7 John Davis RN RN mg2 Corrections: (The following items were deleted from the chart) 19:33 18:59 09/02/2019 18:59 Discharged to Home. Impression: Abdominal tenderness; Zoster mg2 without complications; Type 1 diabetes mellitus. Condition is Stable. Forms are Medication Reconciliation Form, Thank You Letter, Antibiotic Education, Prescription Opioid Use. Follow up: Private Physician; When: 2 - 3 days; Reason: Recheck today's complaints, Continuance of care, Re-evaluation by your physician. Follow up: Ray Arce; When: 2 - 3 days; Reason: Recheck today's complaints, Continuance of care, Re-evaluation by your physician. Problem is new. Symptoms have improved. giles
--- NOTE | 2019-09-02 19:01 | ER ---
Nurse's Notes [facility] Name: Peg Bragg Age: 69 yrs Sex: Female : 1950 Arrival Date: 09/02/2019 Time: 16:44 Bed 24 Private MD: Diagnosis: Abdominal tenderness;Zoster without complications;Type 1 diabetes mellitus Presentation: 09/02 16:54 Presenting complaint: Child states: Continued UTI x 3 weeks, has taken antibiotics jl7 twice now, finishing up the second one and she's not any better. Pt reports "My back hurts, stomach hurts." Pt points to right flank and RLQ, denies burning with urination, denies pain with urination. Transition of care: patient was not received from another setting of care. Onset of symptoms was August 20, 2019. Risk Assessment: Do you want to hurt yourself or someone else? Patient reports no desire to harm self or others. Initial Sepsis Screen: Does the patient meet any 2 criteria? No. Patient's initial sepsis screen is negative. Does the patient have a suspected source of infection? No. Patient's initial sepsis screen is negative. Care prior to arrival: None. 16:54 Method Of Arrival: Wheelchair jl7 16:54 Acuity: CEDRICK 3 jl7 Triage Assessment: 17:00 General: Appears in no apparent distress. uncomfortable, ill, Behavior is calm, jl7 cooperative, appropriate for age. Pain: Complains of pain in right flank Pain radiates to right lower quadrant Pain currently is 10 out of 10 on a pain scale. Quality of pain is described as sharp, Pain began x 3 weeks Is continuous. Musculoskeletal: Range of motion: intact in all extremities. Historical: - Allergies: 17:00 No Known Allergies; jl7 - Home Meds: 17:00 mirtazapine 30 mg Oral tab 1 tab once daily [Active]; donepezil 10 mg oral tab 1 tab jl7 once daily [Active]; glipizide 5 mg Oral tab 1 tab 2 times per day [Active]; memantine 10 mg oral tab 1 tab 2 times per day [Active]; lisinopril 10 mg Oral tab 1 tab once daily [Active]; Trulicity subcutaneous subcutaneous [Active]; - PMHx: 17:00 Diabetes - IDDM; Hypertension; Dementia; jl7 - PSHx: 17:00 Hysterectomy; Cholecystectomy; Appendectomy; jl7 - Immunization history:: Adult Immunizations not up to date. - Coronavirus screen:: The patient has NOT traveled to [place] in the past 14 days. Proceed with normal triage process as indicated. - Social history:: Smoking status: Patient denies any tobacco usage or history of. - Family history:: not pertinent. - Ebola Screening: : No symptoms or risks identified at this time. Screenin:12 Abuse screen: Denies threats or abuse. Denies injuries from another. Nutritional mg2 screening: No deficits noted. Tuberculosis screening: No symptoms or risk factors identified. 19:33 Fall Risk mg2 Assessment: 17:38 General: Appears in no apparent distress. comfortable, Behavior is calm, cooperative. mg2 Pain: Complains of pain in right lower quadrant Pain radiates to back Pain currently is 5 out of 10 on a pain scale. Quality of pain is described as aching, Pain began gradually. Neuro: Level of Consciousness is awake, alert, obeys commands, Oriented to person, place, time, situation. Cardiovascular: Capillary refill < 3 seconds Patient's skin is warm and dry. Respiratory: Airway is patent Respiratory effort is even, unlabored, Respiratory pattern is regular, symmetrical. GI: Reports lower abdominal pain. : Reports history of uti in the last 3 weeks. EENT: No signs and/or symptoms were reported regarding the EENT system. Derm: Skin is intact, is healthy with good turgor, Skin is pink, warm \\T\\ dry. normal. Musculoskeletal: Circulation, motion, and sensation intact. Capillary refill < 3 seconds. 17:45 Reassessment: patient sent to ct scan via wheelchair. mg2 19:32 Reassessment: Patient denies pain at this time. Patient states feeling better. Patient mg2 states symptoms have improved. Vital Signs: 17:00 BP 160 / 78; Pulse 85; Resp 17 S; Temp 98.5(O); Pulse Ox 95% on R/A; Weight 60.33 kg jl7 (R); Height 4 ft. 9 in. (144.78 cm) (R); Pain 10/10; 19:32 BP 128 / 78; Pulse 80; Resp 17; Temp 98; Pulse Ox 100% on R/A; mg2 17:00 Body Mass Index 28.78 (60.33 kg, 144.78 cm) jl7 ED Course: 16:44 Patient arrived in ED. ss 16:57 Triage completed. jl7 17:00 Arm band placed on right wrist. jl7 17:11 John Davis, PAMELLA is Primary Nurse. mg2 17:15 Nicola Marroquin MD is Attending Physician. giles 17:44 No provider procedures requiring assistance completed. Inserted saline lock: 22 gauge mg2 in right forearm, using aseptic technique. Blood collected. 17:45 Patient has correct armband on for positive identification. mg2 18:57 Ray Arce MD is Referral Physician. giles 19:32 IV discontinued, intact, bleeding controlled, No redness/swelling at site. Pressure mg2 dressing applied. Administered Medications: 17:53 Drug: NS 0.9% 1000 ml Route: IV; Rate: 1 bolus; Site: right forearm; mg2 19:32 Follow up: Response: No adverse reaction; IV Status: Completed infusion; IV Intake: mg2 1000ml 18:45 Drug: morphine 4 mg Route: IVP; Site: right forearm; mg2 19:31 Follow up: Response: No adverse reaction; Marked relief of symptoms mg2 18:45 Drug: Zofran 4 mg Route: IVP; Site: right forearm; mg2 19:31 Follow up: Response: No adverse reaction; Marked relief of symptoms mg2 19:17 Drug: Valtrex 1000 mg Route: PO; mg2 19:31 Follow up: Response: No adverse reaction; Marked relief of symptoms mg2 Intake: 19:32 IV: 1000ml; Total: 1000ml. mg2 Outcome: 18:59 Discharge ordered by . [facility] 19:33 Discharged to home via wheelchair, with family. mg2 19:33 Condition: stable 19:33 Discharge instructions given to patient, family, Instructed on discharge instructions, follow up and referral plans. medication usage, Demonstrated understanding of instructions, follow-up care, medications, Prescriptions given X 3. 19:33 Patient left the ED. mg2 Signatures: Nicola Marroquin MD MD cha Smirch, Shelby, RN RN Enzo Amor RN RN jl7 John Davis RN RN mg2 Corrections: (The following items were deleted from the chart) 17:03 17:00 Pain: Complains of pain in right flank Pain radiates to right lower quadrant Pain jl7 currently is 6 out of 10 on a pain scale. Quality of pain is described as sharp, Pain began x 3 weeks Is continuous, jl7
[2019-09-02] MEDS ORDERED: VALACYCLOVIR 500 MG TAB ONE (19:11)
== END 2019-09-02 19:33 | disposition home or self-care (01) ==
LOC: ER 16:43
DX: B02.9 Zoster without complications (principal); E10.9 Type 1 diabetes mellitus without complications; R10.819 Abdominal tenderness, unspecified site; I10 Essential (primary) hypertension; F03.90 Unspecified dementia, unspecified severity, without behavioral disturbance, psychotic disturbance, mood disturbance, and anxiety; Z79.4 Long term (current) use of insulin
CPT/HCPCS: 96361; 87088; 85025; 87086; 80048; 36415; 80076; 81003; 83690; 76377; 74176; 71045; 96375; 96374; 99284; J7030; J2405